=== PATIENT | female | born 1985 | race American Indian/Alaskan Native ===

== ENCOUNTER 2020-10-11 11:30 | Outpatient (CLI) | payer MEDICAID ==
[2020-10-11 13:07] LABS: Hematocrit 35.3 % (30.3-42.9); Hemoglobin 11.5 gm/dl (10.1-14.3); Mean Corpuscular HGB Conc 33 % (30-34); Mean Corpuscular Volume 81 fl (79-97); Platelet Count 415 K/mm3 (140-440); Red Blood Count 4.33 M/mm3 (3.65-5.03); Red Cell Distribution Width 17.4 % (13.2-15.2)
[2020-10-11 13:16] LABS: INR 0.94 (0.87-1.13); Partial Thromboplastin Time 27.2 Sec. (24.2-36.6)
--- NOTE | 2020-10-11 13:26 | XRay Report ---
CHEST 2 VIEWS INDICATION / CLINICAL INFORMATION: HYPERTENSION. COMPARISON: Chest 2 views from 02/10/2015 FINDINGS: SUPPORT DEVICES: None. HEART / MEDIASTINUM: Mildly enlarged cardiac silhouette without other significant abnormalities. LUNGS / PLEURA: Clear lungs. No significant pleural effusion. No pneumothorax. ADDITIONAL FINDINGS: No significant additional findings. IMPRESSION: Mild cardiomegaly without an additional acute abnormality. Signer Name: Parker Eason MD Signed: 10/11/2020 1:21 PM Workstation Name: [id number]
[2020-10-11 13:36] LABS: Alanine Aminotransferase 20 units/L (7-56); BUN/Creatinine Ratio 19; Blood Urea Nitrogen 17 mg/dL (7-17); Calcium 9.6 mg/dL (8.4-10.2); Chol/HDL Ratio 2.36 %; HDL Cholesterol 66 mg/dL (40-59); Hemolysis Index 6; LDL Cholesterol,Direct 89 mg/dL (50-130)
[2020-10-11 13:51] LABS: ABG HCO3 23.6 mmol/L (20.0-26.0); ABG Methemoglobin 0.5 % (0.0-1.5); ABG Oxygen Saturation 97.2 % (95.0-99.0); ABG PCO2 38.7 mm Hg; ABG PH 7.402 pH Units (7.350-7.450); ABG PO2 91.6 mm Hg (80.0-90.0)
== END 2020-10-11 11:31 | disposition home or self-care (01) ==
LOC: CARD 11:30
PROVIDERS: ATTEND Internal Medicine
DX: I51.7 Cardiomegaly (principal); I10 Essential (primary) hypertension; G47.9 Sleep disorder, unspecified; Z68.42 Body mass index [BMI] 45.0-49.9, adult
CPT/HCPCS: 36415; 36600; 71046; 80053; 80061; 82803; 84436; 84443; 85027; 85610; 85730; 93005

== ENCOUNTER 2021-07-19 09:52 | Inpatient (IN) | payer MEDICAID ==
--- NOTE | 2021-07-19 10:16 | History and Physical Report ---
History of Present Illness Date of examination: 07/19/21 Date of admission: 07/19/21 09:52 Chief complaint: her for c/s History of present illness: Pt here for delivery via repeat c/s due to CHTN(no meds) and GDM(on metformin) as recommended by [facility] for delivery between 38-39.6 wks. Past History Past Medical History: asthma (GDM on meds), hypertension, other Past Surgical History: section - Obstetrical History : 2 Para: 1 Number of Living Children: 1 Medications and Allergies Allergies Allergy/AdvReac Type Severity Reaction Status Date / Time No Known Allergies Allergy Verified 02/01/15 02:59 Home Medications Medication Instructions Recorded Confirmed Last Taken Type Albuterol 2 puff IH Q6HR PRN 02/01/15 02/09/15 02/01/15 History Zithromax Z-EMMY 250 mg PO DAILY 02/01/15 02/09/15 02/01/15 00:00 History 250 mg Ibuprofen [Motrin] 800 mg PO Q8H PRN #30 tablet 02/09/15 Unknown Rx Lidocaine/Prilocaine [Emla Cream] 5 gm TP ONCE #1 cream..g. 02/09/15 Unknown Rx oxyCODONE /ACETAMINOPHEN [Percocet 1 - 2 tab PO Q6HR PRN #30 tablet 02/09/15 Unknown Rx 5/325] Pantoprazole [Protonix] 40 mg PO QHS #30 1000units 02/11/15 Unknown Rx Albuterol Mdi (or & Nicu Only) 2 puff IH TID PRN #1 inhalation 02/12/15 Unknown Rx [ProAir HFA Inhaler] NIFEdipine XL [Procardia Xl] 30 mg PO Q12HR #60 tablet 02/12/15 Unknown Rx Results Result Diagrams: 07/19/21 10:30 All other labs normal. Assessment and Plan - Patient Problems (1) 38 weeks gestation of Current Visit: No Status: Acute Plan to address problem: -admit -prepare for c/s (2) Asthma Current Visit: No Status: Acute Qualifiers: Asthma severity: mild (3) Previous delivery, antepartum Current Visit: No Status: Acute Plan to address problem: -admit and prepare for c/s -consents signed and placed on the chart -all questions were addressed and answered.
--- NOTE | 2021-07-19 10:34 | Anesthesia Day of Surgery ---
Anesthesia Day of Surgery - Day of Surgery Patient Examined: Yes Patient H&P Reviewed: Yes Patient is NPO: Yes Beta Blockers: No Cardiac Clearance: No Pulmonary Clearance: No Bruno's Test: Negative
--- NOTE | 2021-07-19 10:36 | Anesthesia Consultation ---
Anesthesia Consult and Med Hx Date of service: 07/19/21 - Airway Anesthetic Teeth Evaluation: Poor ROM Head & Neck: Adequate Mental/Hyoid Distance: Adequate Mallampati Class: Class II Intubation Access Assessment: Probably Good - Pulmonary Exam CTA: No (wheezing) - Cardiac Exam Cardiac Exam: RRR - Pre-Operative Health Status ASA Pre-Surgery Classification: ASA3 Proposed Anesthetic Plan: Spinal - Pulmonary Hx Smoking: Yes (stop 7months ago) Hx Asthma: Yes (recent development) Hx Respiratory Symptoms: Yes SOB: No COPD: No Home Oxygen Therapy: No Hx Pneumonia: No Hx Sleep Apnea: No - Cardiovascular System Hx Hypertension: No Hx Coronary Artery Disease: No Hx Heart Attack/AMI: Yes Hx Angina: No Hx Percutaneous Transluminal Coronary Angioplasty (PTCA): No Hx Cardia Arrhythmia: No Hx Pacemaker: No Hx Internal Defibrillator: No Hx Valvular Heart Disease: No Hx Heart Murmur: No Hx Peripheral Vascular Disease: No - Central Nervous System Hx Neuromuscular Disorder: No Hx Seizures: No CVA: No Hx Back Pain: Yes Hx Psychiatric Problems: No - Gastrointestinal Hx Ulcer: No Hx Gastroesophageal Reflux Disease: No - Endocrine Hx Renal Disease: No Hx End Stage Renal Disease: No Hx Cirrhosis: No Hx Liver Disease: No Hx Insulin Dependent Diabetes: No Hx Non-Insulin Dependent Diabetes: Yes Hx Hypothyroidism: No Hx Hyperthyroidism: No - Hematic Hx Anemia: No Hx Sickle Cell Disease: No - Other Systems Hx Alcohol Use: No Hx Substance Use: No Hx Cancer: No Hx Obesity: Yes
[2021-07-19] MEDS: LACTATED RINGERS 1,000 ML IV SCH (10:45)
[2021-07-19 10:53] LABS: Basophils % (Auto) 0.4 % (0.0-1.8); Eosinophils # (Auto) 0.3 K/mm3 (0.0-0.4); Eosinophils % (Auto) 4.5 % (0.0-4.3); Hematocrit 35.7 % (30.3-42.9); Hemoglobin 11.4 gm/dl (10.1-14.3); Lymphocytes # (Auto) 1.5 K/mm3 (1.2-5.4); Lymphocytes % (Auto) 22.8 % (13.4-35.0); Mean Corpuscular HGB Conc 32 % (30-34); Mean Corpuscular Volume 83 fl (79-97); Monocytes # (Auto) 0.3 K/mm3 (0.0-0.8); Monocytes % (Auto) 4.1 % (0.0-7.3); Platelet Count 441 K/mm3 (140-440); Red Blood Count 4.33 M/mm3 (3.65-5.03)
[2021-07-19] MEDS ORDERED: HYDROmorphone 1 MG/1 ML INJ IV PRN ×2 (11:00)
[2021-07-19] MEDS ORDERED: ceFAZolin/Water 2 GM/20 ML 2 GM/20 ML SYRINGE IV NR (11:00)
[2021-07-19] MEDS ORDERED: ONDANSETRON 4 MG/2 ML INJ IV PRN (11:00)
[2021-07-19] MEDS ORDERED: BICITRA ORAL LIQD 30ML PO ONE (11:00)
[2021-07-19] MEDS ORDERED: ALBUTEROL 2.5 MG/3 ML NEBU IH NR (11:00)
[2021-07-19] MEDS ORDERED: METOCLOPRAMIDE 10 MG/2 ML INJ IV ONE (11:00)
[2021-07-19] MEDS ORDERED: NALOXONE 0.4 MG/1 ML INJ IV PRN ×2 (11:00→13:54)
[2021-07-19] MEDS ORDERED: FAMOTIDINE 20 MG/2 ML INJ IV ONE (11:00)
[2021-07-19] MEDS ORDERED: OXYTOCIN DRIP 30 UNITS/500 ML BAG IV SCH (11:00)
[2021-07-19] MEDS ORDERED: ONDANSETRON 4 MG/2 ML INJ ONE ×2 (11:55)
[2021-07-19] MEDS ORDERED: PHENYLEPHRINE/NS 1,000 MCG/10 ML SYRINGE (OR USE) IV ONE (12:11)
[2021-07-19] MEDS ORDERED: WATER FOR IRRIG STERILE 1,500 ML BOTTLE IR ONE (12:15)
[2021-07-19] MEDS ORDERED: ceFAZolin 1 GM VIAL ONE (12:15)
[2021-07-19] MEDS ORDERED: SODIUM CHLORIDE 0.9% IRR 1,500 ML BOTTLE IR ONE (12:15)
[2021-07-19] MEDS ORDERED: BUPIVACAINE/PF (0.25%) 2.5 MG/ML 30 ML VIAL INFILTRATI ONE ×2 (12:57)
[2021-07-19] MEDS ORDERED: dexAMETHasone 20 MG/5 ML VIAL ONE (12:57)
[2021-07-19] MEDS ORDERED: MAGNESIUM SULFATE 40GM/1000ML 40 GM/1,000 ML BAG IV ONE (13:42)
[2021-07-19] MEDS ORDERED: MAGNESIUM SULFATE 4 GM/100 ML BAG IV ONE ×3 (13:42→15:19)
--- NOTE | 2021-07-19 13:45 | Progress Note ---
Spinal Anesthesia Block - Spinal Anesthesia Block Start Time: 12:01 Stop Time: 12:07 Performed by:: HAMIDA VASQUEZ Procedure: Patient IDed, H&P reviewed, all questions and concerns were answered, and consent was signed. Timeout was performed at bedside. Patient in sitting position. Sterile prep and drape was performed. [3] ml of 1% lidocaine skin wheal at L[3]- L [4]. Needle introducer advanced. 25 gauge spinal needle advanced. Clear, free flowing CSF. negative blood, negative paresthesia. Spinal dose given. All needles removed. Patient tolerated procedure.
--- NOTE | 2021-07-19 13:49 | Progress Note ---
Regional Anesthesia Block - Regional Anesthesia Block Start Time: 13:24 Stop Time: : Performed By:: HAMIDA VASQUEZ Procedure: Patient consented for TAP block for post surgical pain management. Patient identified, monitors placed, and time out performed. TAP identified bilaterally via ultrasound. Skin prepped bilaterally with [chlorhexidine] and [22g stimuplex] needle advanced to the TAP. [Marcaine 0.25% 35ml] injected under ultrasound guidance on the [left] side. [Marcaine 0.25% 35ml] injected under ultrasound guidance on the [right] side. Negative aspiration every 5mL, No change in heart rate or rhythm. Patient tolerated the procedure well. No apparent complications seen.
[2021-07-19] MEDS ORDERED: KETOROLAC 30 MG/1 ML INJ IV PRN ×2 (13:54)
[2021-07-19] MEDS ORDERED: WITCH HAZEL/ GLYCERIN PAD TP PRN (13:54)
[2021-07-19] MEDS ORDERED: LANOLIN/ZINC/DIMETHICONE (LANSINOH) 7 GM TP PRN (13:54)
--- NOTE | 2021-07-19 13:54 | Operative Report ---
Operative Report Operative Report: Date of procedure: 07/19/2021 Pre-operative diagnosis: 38 weeks gestation Previous section x2 Advanced maternal age Gestational diabetes on oral meds Chronic hypertension on no medications Post-operative diagnosis: Same Procedure name(s): Repeat low transverse section via Pfannenstiel skin incision Vacuum assisted delivery Surgeon: Dr. Mendoza Wrapper Stemmer Hand: ANTONELLA Anesthesia: Certified surgical scrub esl instructional assistant EBL: QBL: 1868ml Urine output: 100 mL of clear urine out at end of procedure Fluids: 900 mL Findings: Liveborn male weight 7 pounds 1 ounce Apgars of 8 and 8 at 1 and 5 minutes Grossly normal fallopian tubes and ovaries bilaterally Mild pelvic adhesions of the uterus to the posterior abdominal wall. Indications: Patient presents for scheduled repeat section. All risk benefits and alternatives were discussed with the patient. Consents were signed and placed on the chart. Procedure: Patient was taking to the operating room. Patient was then prepped and draped in sterile fashion after anesthesia was found to be adequate. A low transverse skin incision was made with the scalpel through previous incisional scar and carried down to the underlying layer of fascia with the Bovie. The fascia was then incised in the midline and this incision was extended bilaterally with the Bovie. The superior aspect of the fascia was grasped with Damon clamps tented upward and dissected off of the anterior rectus muscles with the scalpel. In similar fashion the inferior aspect of the fascia was grasped with Damon clamps tented upward and dissected off of the anterior rectus muscles. The rectus muscles were then bluntly divided in the midline. The peritoneum was identified and entered into sharply. The Vinny retractor was placed the bladder blade was placed.A lower transverse uterine incision was made with the scalpel and extended bilaterally with the bandage scissors. Artificial rupture of membranes was performed yielding [clear amniotic fluid]. Kiwi vacuum was applied with care not to place over anterior fontanelle. Vacuum was applied a total of 4 times however it should be noted that with application #2 there was no immediate pop-off due to not having complete suction on the second time it was applied. There was a total of 3 pop offs. With each placement of the vacuum the infant's head was reevaluated to be sure that the position was noted to be unchanged and care was placed not to position over anterior fontanelle. The uterine incision was extended superiorly in order to facilitate delivery of the head. The 's head was then delivered atraumatically. The anterior shoulder and rest of infant delivered without difficulty. The umbilical cord was clamped x2. The cord was cut. The was then placed in sterile bassinet. [The cord blood was collected]. The placenta was manually extracted in its entirety. The uterus was exteriorized and cleared of all clots and debris. The uterine incisions were closed using 0 Vicryl in a running locking fashion. Several [id number] sutures were used along incision lines to secure excellent hemostasis. Surgicel was placed along the incision. With excellent hemostasis noted. The posterior cul-de-sac was copiously irrigated. The uterus was returned to the abdomen. The gutters were also irrigated. The anterior rectus muscles were reapproximated using 3-0 Vicryl. The anterior rectus fascia was reapproximated using 0 Vicryl in a running fashion. The subcuticular fat was reapproximated using 2-0 Vicryl in a running fashion. The skin was reapproximated with 4-0 Monocryl in a subcuticular stitch. The patient tolerated the procedure well. Sponge lap and needle counts were all correct x3. Patient was taken to the recovery room awake and in stable condition.
[2021-07-19] MEDS ORDERED: MAGNESIUM SULFATE 40GM/1000ML 40 GM/1,000 ML BAG IV SCH (14:00)
[2021-07-19] MEDS ORDERED: D5W/LACTATED RINGERS 1,000 ML IV SCH (15:00)
[2021-07-19] MEDS ORDERED: ALBUTEROL 2.5 MG/3 ML NEBU IH PRN (16:00)
[2021-07-19] MEDS ORDERED: hydrALAZINE 20 MG/1 ML INJ IV ONE (19:45)
[2021-07-19] MEDS: ceFAZolin/NS 1 GM/50 ML 1 GM/50 ML BAG IV SCH (19:51)
[2021-07-19] MEDS: HYDROcodone/ACETAMINOPHEN 5-325 MG TAB PO PRN (23:59)
[2021-07-20 01:03] LABS: Hematocrit 31.2 % (30.3-42.9); Hemoglobin 10.2 gm/dl (10.1-14.3)
[2021-07-20] MEDS ORDERED: hydrALAZINE 20 MG/1 ML INJ IV ONE (02:27)
[2021-07-20] MEDS ORDERED: SIMETHICONE 80 MG CHEW TAB PO ONE (02:35)
[2021-07-20] MEDS: ceFAZolin/NS 1 GM/50 ML 1 GM/50 ML BAG IV SCH (02:46)
[2021-07-20] MEDS: LACTATED RINGERS 1,000 ML IV SCH (03:02)
[2021-07-20] MEDS: HYDROcodone/ACETAMINOPHEN 5-325 MG TAB PO PRN ×2 (05:25→22:54)
[2021-07-20] MEDS: IBUPROFEN 800 MG TAB PO PRN ×2 (09:47→16:17)
--- NOTE | 2021-07-20 11:26 | Progress Note ---
Assessment and Plan - Patient Problems (1) delivery delivered Current Visit: No Status: Acute Plan to address problem: Continue routine postoperative care Incision C/D/I Wound care reviewed with patient (2) Chronic hypertension Current Visit: Yes Status: Chronic Plan to address problem: Labetalol 200 mg BID restarted Will continue to monitor blood pressures (3) Gestational diabetes mellitus Current Visit: Yes Status: Acute Plan to address problem: Metformin D/C'd following delivery Fasting glucose in the AM 2hr GTT in 6 weeks (4) Pre-eclampsia Current Visit: No Status: Acute Plan to address problem: Magnesium sulfate to end at 1400 Patient asymptomatic Will continue to monitor blood pressures Labetalol 200 mg BID Subjective - Subjective Date of service: 07/20/21 Principal diagnosis: s/p repeat section Interval history: Patient is with h/o GDM and cHTN POD #1 s/p RCS. Voices no complaints. Notes some incisional pain. Tolerating diet without nausea and vomiting. Has not yet been ambulating due to being on Magnesium. Denies CERVANTES, RUQ/epigastric pain, chest pain, and SOB. Baby at bedside doing well. Unsure of how much bleeding she is having as she has not been up to the restroom due to catheter being in place. Patient reports: appetite normal, flatus [place]: doing well Objective - Vital Signs Latest vital signs: Vital Signs Temp Pulse Resp BP BP Pulse Ox Pulse Ox 07/20/21 11:20 82 99 07/20/21 11:16 78 119/73 07/20/21 11:15 78 100 07/20/21 11:10 76 99 07/20/21 11:05 78 97 07/20/21 11:00 78 96 07/20/21 10:55 79 100 07/20/21 10:50 80 99 07/20/21 10:46 83 132/71 07/20/21 10:45 82 99 07/20/21 10:40 84 97 07/20/21 10:39 88 93 07/20/21 10:35 86 99 07/20/21 10:30 86 99 07/20/21 10:25 89 96 07/20/21 10:20 91 H 99 07/20/21 10:16 89 130/65 07/20/21 10:15 91 H 99 07/20/21 10:14 91 H 92 07/20/21 10:10 92 H 99 07/20/21 10:05 88 98 07/20/21 10:01 96 H 87 07/20/21 10:00 85 100 07/20/21 09:55 87 100 07/20/21 09:50 86 100 07/20/21 09:49 98.0 F 07/20/21 09:47 142/81 07/20/21 09:46 83 142/81 07/20/21 09:45 89 100 07/20/21 09:40 85 100 07/20/21 09:35 85 99 07/20/21 09:30 83 99 07/20/21 09:28 88 93 07/20/21 09:25 80 98 07/20/21 09:20 83 100 07/20/21 09:16 82 134/79 07/20/21 09:15 82 100 07/20/21 09:10 84 100 07/20/21 09:05 83 100 07/20/21 09:00 93 H 100 07/20/21 08:55 86 100 07/20/21 08:50 83 99 07/20/21 08:46 85 141/90 07/20/21 08:45 86 100 07/20/21 08:40 82 100 07/20/21 08:35 86 100 07/20/21 08:30 85 99 07/20/21 08:25 84 99 07/20/21 08:20 83 100 07/20/21 08:16 80 137/70 91 07/20/21 08:15 86 98 07/20/21 08:10 83 96 07/20/21 08:06 84 94 07/20/21 08:05 84 95 07/20/21 08:00 84 96 07/20/21 07:55 86 96 07/20/21 07:50 87 96 07/20/21 07:46 86 148/87 07/20/21 07:45 86 98 07/20/21 07:44 93 H 94 07/20/21 07:40 95 H 100 21 07:35 87 100 21 07:30 84 100 07/20/21 07:25 87 100 07/20/21 07:20 83 100 07/20/21 07:16 81 149/70 07/20/21 07:15 83 100 07/20/21 07:10 86 99 07/20/21 07:06 99 H 93 07/20/21 07:05 93 H 99 07/20/21 07:00 84 100 07/20/21 06:55 85 100 07/20/21 06:50 83 100 07/20/21 06:46 85 120/60 07/20/21 06:45 83 100 07/20/21 06:40 84 100 07/20/21 06:35 83 100 07/20/21 06:30 85 99 07/20/21 06:25 83 98 07/20/21 06:20 87 100 07/20/21 06:16 83 132/65 07/20/21 06:15 90 99 07/20/21 06:10 85 99 07/20/21 06:09 100 H 85 07/20/21 06:05 88 99 07/20/21 06:00 91 H 99 07/20/21 05:55 86 99 07/20/21 05:50 87 100 07/20/21 05:46 86 144/77 94 07/20/21 05:45 88 98 07/20/21 05:40 86 100 07/20/21 05:35 88 100 100 07/20/21 05:33 96 H 92 07/20/21 05:30 85 98 07/20/21 05:25 86 100 100 07/20/21 05:20 83 100 07/20/21 05:16 84 157/83 93 07/20/21 05:15 85 100 07/20/21 05:10 83 98 07/20/21 05:05 93 H 99 07/20/21 05:00 88 100 07/20/21 04:55 87 100 07/20/21 04:50 84 100 07/20/21 04:46 82 157/83 88 07/20/21 04:45 83 100 07/20/21 04:40 85 100 07/20/21 04:35 86 100 07/20/21 04:30 89 99 07/20/21 04:25 83 98 07/20/21 04:20 87 98 07/20/21 04:16 85 139/76 90 07/20/21 04:15 87 97 07/20/21 04:10 85 98 07/20/21 04:05 85 98 10/23/21 04:00 85 100 07/20/21 03:55 86 100 07/20/21 03:50 86 99 07/20/21 03:46 85 154/80 94 07/20/21 03:45 89 95 07/20/21 03:40 83 98 07/20/21 03:35 87 97 07/20/21 03:30 85 99 07/20/21 03:25 84 99 07/20/21 03:20 84 100 99 07/20/21 03:16 87 133/77 89 07/20/21 03:15 84 100 07/20/21 03:10 86 100 07/20/21 03:05 91 H 98 07/20/21 03:00 89 98 07/20/21 02:55 86 98 07/20/21 02:50 86 98 07/20/21 02:49 98.5 F 83 20 146/84 99 07/20/21 02:46 82 174/99 94 07/20/21 02:45 86 98 07/20/21 02:40 82 100 07/20/21 02:35 81 99 07/20/21 02:30 76 100 07/20/21 02:25 89 99 07/20/21 02:20 82 98 07/20/21 02:16 85 132/76 07/20/21 02:15 84 100 07/20/21 02:10 82 99 07/20/21 02:05 79 99 07/20/21 02:00 83 100 07/20/21 01:55 78 98 07/20/21 01:50 83 98 07/20/21 01:46 80 174/99 94 07/20/21 01:45 80 98 07/20/21 01:40 80 100 07/20/21 01:35 86 100 98 07/20/21 01:30 84 99 07/20/21 01:25 84 100 07/20/21 01:20 120 H 97 07/20/21 01:17 85 94 07/20/21 01:16 80 153/86 07/20/21 01:15 84 100 07/20/21 01:10 82 100 07/20/21 01:09 70 93 07/20/21 01:05 83 99 07/20/21 01:00 83 99 07/20/21 00:55 81 100 07/20/21 00:50 80 100 10/23/21 00:49 83 91 23/21 00:46 78 146/89 23/21 00:45 82 100 23/21 00:40 82 100 23/21 00:35 81 99 23/21 00:30 84 98 23/21 00:25 84 99 23/21 00:20 85 99 23/21 00:15 91 H 97 23/21 00:10 85 99 23/21 00:05 89 100 23/21 00:00 86 99 22/21 23:55 85 98 22/21 23:54 89 94 22/21 23:50 98.0 F 87 98 22/21 23:46 86 146/86 86 22/21 23:45 86 97 22/21 23:40 87 96 22/21 23:35 88 97 22/21 23:30 89 99 22/21 23:25 89 98 22/21 23:20 88 99 22/21 23:16 89 139/81 93 22/21 23:15 90 97 22/21 23:10 90 98 22/21 23:05 90 99 22/21 23:00 91 H 99 22/21 22:55 94 H 94 22/21 22:50 94 H 100 22/21 22:46 93 H 149/82 91 22/21 22:45 94 H 97 22/21 22:42 98.5 F 92 H 20 98 22/21 22:40 92 H 98 22/21 22:35 91 H 99 22/21 22:30 95 H 18 97 22/21 22:25 93 H 100 22/21 22:20 92 H 98 22/21 22:16 96 H 159/85 87 22/21 22:15 100 H 99 22/21 22:10 92 H 99 22/21 22:05 91 H 99 22/21 22:00 95 H 100 22/21 21:55 94 H 100 22/21 21:50 104 H 100 22/21 21:46 96 H 138/83 10/22/21 21:45 95 H 100 07/19/21 21:40 97 H 100 07/19/21 21:35 100 H 100 07/19/21 21:31 98 H 91 07/19/21 21:30 98 H 100 07/19/21 21:27 98 07/19/21 21:25 94 H 99 07/19/21 21:20 88 99 07/19/21 21:16 89 151/88 07/19/21 21:15 88 100 07/19/21 21:10 88 100 07/19/21 21:05 99 H 100 07/19/21 21:04 91 H 168/90 07/19/21 21:00 94 H 168/80 100 07/19/21 20:55 96 H 100 07/19/21 20:50 98 H 100 07/19/21 20:46 83 175/100 07/19/21 20:45 86 100 07/19/21 20:40 89 100 07/19/21 20:35 91 H 100 07/19/21 20:30 87 100 07/19/21 20:25 95 H 100 07/19/21 20:20 88 97 07/19/21 20:16 92 H 174/99 07/19/21 20:15 92 H 100 07/19/21 20:10 90 100 07/19/21 20:05 93 H 100 07/19/21 20:00 92 H 100 07/19/21 19:55 88 100 07/19/21 19:50 90 99 07/19/21 19:46 89 164/94 07/19/21 19:45 91 H 99 07/19/21 19:40 86 100 07/19/21 19:35 86 100 21 19:30 87 100 22 19:25 84 100 07/19/21 19:20 85 100 21 19:16 86 167/96 07/19/21 19:15 85 100 07/19/21 19:10 93 H 99 07/19/21 19:08 83 89 07/19/21 19:05 88 100 07/19/21 19:00 98.7 F 90 100 2221 18:55 83 100 2221 18:50 83 100 2221 18:49 90 85 22/21 18:46 82 168/96 10/22/21 18:45 86 100 07/19/21 18:40 81 100 07/19/21 18:35 83 100 07/19/21 18:30 80 100 07/19/21 18:25 86 100 07/19/21 18:20 79 100 07/19/21 18:16 78 163/98 07/19/21 18:15 79 100 07/19/21 18:10 83 100 07/19/21 18:05 93 H 95 07/19/21 18:01 93 H 90 07/19/21 18:00 85 100 07/19/21 17:55 85 100 07/19/21 17:50 89 100 07/19/21 17:46 85 166/90 07/19/21 17:45 84 100 07/19/21 17:40 82 100 07/19/21 17:35 83 100 07/19/21 17:30 87 100 07/19/21 17:25 87 100 07/19/21 17:20 82 100 07/19/21 17:16 81 152/86 07/19/21 17:15 85 100 07/19/21 17:10 77 100 07/19/21 17:07 78 166/90 07/19/21 17:05 84 100 07/19/21 17:00 79 100 07/19/21 16:55 84 100 07/19/21 16:51 61 83 L 07/19/21 16:50 69 96 07/19/21 16:46 77 174/91 07/19/21 16:45 79 100 07/19/21 16:40 80 100 07/19/21 16:35 79 100 07/19/21 16:30 84 100 07/19/21 16:25 80 100 07/19/21 16:20 72 100 07/19/21 16:16 78 143/78 07/19/21 16:15 79 100 07/19/21 16:14 104 H 57 L 07/19/21 16:10 77 100 07/19/21 16:05 82 100 07/19/21 16:01 80 86 07/19/21 16:00 72 100 07/19/21 15:55 72 100 07/19/21 15:50 75 100 07/19/21 15:46 72 140/93 07/19/21 15:45 74 100 07/19/21 15:40 71 100 07/19/21 15:35 73 100 07/19/21 15:31 73 88 07/19/21 15:30 73 97 07/19/21 15:25 73 100 07/19/21 15:20 71 100 07/19/21 15:15 73 133/84 100 07/19/21 15:10 73 100 07/19/21 14:40 97.7 F 73 20 133/62 100 07/19/21 14:30 73 18 135/73 100 07/19/21 14:15 75 17 155/75 100 07/19/21 14:00 76 17 143/75 100 07/19/21 13:50 74 17 133/70 100 07/19/21 13:45 76 17 134/72 100 07/19/21 13:40 78 18 98/50 100 07/19/21 13:39 97.4 F L 78 18 162/106 100 07/19/21 11:37 95 H 100 07/19/21 11:32 99 H 100 07/19/21 11:27 92 H 100 Intake and Output 07/19/21 07/20/21 07/20/21 23:59 07:59 15:59 Intake Total 50 480 Output Total 3080 950 600 Balance -3030 -470 -600 Intake: IV 50 ANCEF/NS 1 GM/50 ML 1 gm 50 In 50 ml @ 100 mls/hr IV Q8H PENDING SALE TO [facility] Rx#:[id number] Oral 480 Output: Urine 3080 950 600 Indwelling Catheter 3080 950 600 Other: Total, Intake Amount 120 Total, Output Amount 400 300 600 - Exam Cardiovascular: Present: Regular rate Lungs: Present: Normal air movement Abdomen: Present: normal appearance, soft Uterus: Present: firm, fundal height below umbilicus Extremities: Present: normal Incision: Present: dry, intact - Labs Labs: Abnormal lab results 07/19/21 07/20/21 07/20/21 Range/Units 17:42 00:14 06:01 Magnesium 3.70 H 3.80 H 4.40 H (1.7-2.3) mg/dL
[2021-07-20] MEDS ORDERED: TETANUS,DIPH,PERTUSS(ACELL) VACCINE 0.5 ML SYRINGE IM ONE (14:55)
--- NOTE | 2021-07-20 16:04 | Post Anesthesia Evaluation ---
- Post Anesthesia Evaluation Patient Participated: Yes Airway Patent: Yes Stable Respiratory Function: Yes Nausea/Vomiting: No Temp > 96.8F: Yes Pain Manageable: Yes Adequeate Hydration: Yes Anesthesia Complications: No Block Receding Appropriately: Yes Patient on Ventilator: No
[2021-07-21] MEDS: IBUPROFEN 800 MG TAB PO PRN (04:08)
[2021-07-21] MEDS ORDERED: SIMETHICONE 80 MG CHEW TAB PO PRN (09:28)
--- NOTE | 2021-07-21 09:33 | Progress Note ---
Assessment and Plan - Patient Problems (1) delivery delivered Current Visit: No Status: Acute Plan to address problem: Continue routine postoperative care Incision C/D/I Wound care reviewed with patient (2) Chronic hypertension Current Visit: Yes Status: Chronic Plan to address problem: Labetalol 200 mg BID Will continue to monitor blood pressures (3) Gestational diabetes mellitus Current Visit: Yes Status: Acute Plan to address problem: Metformin D/C'd following delivery 2hr GTT in 6 weeks (4) Pre-eclampsia Current Visit: No Status: Acute Plan to address problem: s/p magnesium sulfate Subjective - Subjective Principal diagnosis: s/p repeat section Interval history: Patient is with h/o GDM and cHTN POD #2 s/p RCS. Voices no complaints. Notes some gas pain. Tolerating diet, ambulating, and voiding. Denies CERVANTES, RUQ/epigastric pain, chest pain, and SOB. Baby at bedside doing well. POC discussed with patient. Will continue to monitor with possible discharge this evening. Patient reports: appetite normal, voiding normally, pain well controlled, ambulating normally : doing well Objective - Vital Signs Latest vital signs: Vital Signs Temp Pulse Resp BP BP Pulse Ox Pulse Ox 07/21/21 05:58 98.4 F 86 18 126/60 100 07/21/21 05:08 18 07/21/21 04:08 20 07/21/21 01:31 98.1 F 89 18 123/62 100 07/20/21 23:54 18 07/20/21 22:54 18 07/20/21 22:53 88 135/75 07/20/21 21:18 97.3 F L 82 18 137/83 100 07/20/21 16:27 98.2 F 83 18 140/78 99 07/20/21 14:40 98.0 F 80 19 145/85 98 98 07/20/21 14:19 80 145/78 07/20/21 14:16 81 188/97 07/20/21 14:15 79 100 07/20/21 14:10 81 98 07/20/21 14:05 81 100 07/20/21 14:00 83 100 07/20/21 13:55 81 100 07/20/21 13:50 83 100 07/20/21 13:46 80 159/81 93 07/20/21 13:45 83 100 07/20/21 13:40 86 100 07/20/21 13:35 81 100 07/20/21 13:30 84 98 07/20/21 13:27 97.8 F 07/20/21 13:25 84 99 07/20/21 13:20 81 99 07/20/21 13:16 80 138/85 07/20/21 13:15 88 99 07/20/21 13:10 83 99 07/20/21 13:05 80 100 07/20/21 13:00 84 99 07/20/21 12:55 80 100 07/20/21 12:50 83 99 07/20/21 12:46 77 133/74 91 07/20/21 12:45 80 98 07/20/21 12:40 78 99 07/20/21 12:35 79 99 07/20/21 12:30 80 99 07/20/21 12:25 82 99 07/20/21 12:20 85 100 07/20/21 12:16 81 101/62 07/20/21 12:15 84 99 07/20/21 12:10 80 99 07/20/21 12:05 78 98 07/20/21 12:00 82 100 07/20/21 11:55 78 100 07/20/21 11:50 85 98 07/20/21 11:46 85 121/62 89 07/20/21 11:45 86 100 07/20/21 11:40 83 98 07/20/21 11:35 76 99 07/20/21 11:30 78 100 07/20/21 11:25 79 99 07/20/21 11:20 82 99 07/20/21 11:16 78 119/73 07/20/21 11:15 78 100 07/20/21 11:10 76 99 07/20/21 11:05 78 97 07/20/21 11:00 78 96 07/20/21 10:55 79 100 07/20/21 10:50 80 99 07/20/21 10:46 83 132/71 07/20/21 10:45 82 99 07/20/21 10:40 84 97 07/20/21 10:39 88 93 07/20/21 10:35 86 99 07/20/21 10:30 86 99 07/20/21 10:25 89 96 07/20/21 10:20 91 H 99 10/23/21 10:16 89 130/65 07/20/21 10:15 91 H 99 07/20/21 10:14 91 H 92 07/20/21 10:10 92 H 99 07/20/21 10:05 88 98 07/20/21 10:01 96 H 87 07/20/21 10:00 85 100 07/20/21 09:55 87 100 07/20/21 09:50 86 100 07/20/21 09:49 98.0 F 07/20/21 09:47 142/81 07/20/21 09:46 83 142/81 07/20/21 09:45 89 100 07/20/21 09:40 85 100 07/20/21 09:35 85 99 07/20/21 09:30 83 99 Intake and Output 07/20/21 07/21/21 07/21/21 23:59 07:59 15:59 Intake Total 240 480 Output Total 500 600 Balance -260 -120 Intake: Oral 240 Intake, Free Water 240 240 Output: Urine 500 600 Void 500 600 Other: Total, Intake Amount 240 Total, Output Amount 500 600 # Voids Void 1 1 - Exam Cardiovascular: Present: Regular rate, Normal S1, Normal S2 Lungs: Present: Clear to auscultation Abdomen: Present: soft Vulva: both: normal Uterus: Present: firm, fundal height above umbilicus Extremities: Present: normal Incision: Present: normal, dry, intact - Labs Labs: Abnormal lab results 07/20/21 Range/Units 12:18 Magnesium 4.60 H (1.7-2.3) mg/dL
[2021-07-21] MEDS: HYDROcodone/ACETAMINOPHEN 5-325 MG TAB PO PRN (14:40)
--- NOTE | 2021-07-21 16:13 | Discharge Summary ---
Providers - Providers Date of Admission: 07/19/21 09:52 Date of discharge: 07/21/21 Attending physician: SHAINA TORRES Primary care physician: SHAINA TORRES Hospitalization Reason for admission: Repeat section Condition: Stable Procedures: Repeat section Hospital course: Patient admitted for RCS at 38 weeks secondary to GDM and cHTN. S/p RCS delivery of a male . See operative note for additional details. Patient noted to have elevated blood pressures on POD #0 and started on magnesium s ulfate for 24 hours and Labetalol 200 mg BID. Tolerated well. All postoperative goals met. Blood pressure well controlled. Discharged home in stable condition on POD #2. Disposition: 01 HOME / SELF CARE / HOMELESS Final Discharge Diagnosis (Prints w/discharge instructions): S/P Repeat Section - Discharge Diagnoses (1) delivery delivered Status: Acute (2) Chronic hypertension Status: Chronic (3) Gestational diabetes mellitus Status: Acute Qualifiers: Gestational diabetes mellitus control: oral hypoglycemic-controlled (4) Pre-eclampsia Status: Acute Qualifiers: Trimester: third trimester Qualified Code(s): O14.93 - Unspecified pre- eclampsia, third trimester Core Measure Documentation - Palliative Care Palliative Care/ Comfort Measures: Not Applicable - Core Measures Any of the following diagnoses?: none Exam - Constitutional Vitals: Temp Pulse Resp BP Pulse Ox 98.6 F 81 18 120/72 100 07/21/21 11:52 07/21/21 11:52 07/21/21 14:40 07/21/21 11:52 07/21/21 11:52 General appearance: Present: no acute distress - Respiratory Respiratory: bilateral: CTA - Cardiovascular Rhythm: regular Heart Sounds: Present: S1 & S2 - Extremities Extremities: no ischemia, No edema - Abdominal General gastrointestinal: Present: soft, non-tender, other (incision clean dry and intact) Female genitourinary: Present: other (perineum dry) Plan Activity: advance as tolerated, other (Nothing in the vagina, including sex, for 6 weeks) Weight Bearing Status: Full Weight Bearing Diet: diabetic Wound: open to air, keep clean and dry Care Plan Goals: [] Smoking cessation referral if applicable(refer to patient education folder for contact #) [] Refer to [facility] Booklet Call your doctor immediately for: * Fever > 100.5 * Heavy vaginal bleeding ( >1 pad per hour) * Severe persistent headache * Shortness of breath * Reddened, hot, painful area to leg or breast * Drainage or odor from incision. * Keep incision clean and dry at all times and follow doctor's instructions regarding bathing/showering Plan of Treatment: Call your doctor immediately for: * Fever > 100.5 * Heavy vaginal bleeding ( >1 pad per hour) * Severe persistent headache * Shortness of breath * Reddened, hot, painful area to leg or breast * Drainage or odor from incision. * Keep incision clean and dry at all times and follow doctor's instructions regarding bathing/showering * Nothing in the vagina, including sex, for 6 weeks Please contact office to schedule 1 week incision check and circumcision. Follow up with: SHAINA TORRES MD [Primary Care Provider] - 7 Days Forms: [facility] Discharge Summary Prescriptions: Docusate Sodium [Colace] 100 mg PO BID PRN #60 capsule PRN Reason: Constipation Lidocain2.5%/Prilocai2.5% [Emla] 2 gm TP ONCE #1 tube Ferrous Sulfate [Feosol 325 MG tab] 325 mg PO QDAY #60 tablet labetaloL [Labetalol 200mg TAB] 200 mg PO BID #60 tablet Ibuprofen [Motrin 800 MG tab] 800 mg PO Q8HR PRN #30 tablet PRN Reason: Pain, Moderate (4-6) oxyCODONE /ACETAMINOPHEN [Percocet 5/325] 1 tab PO Q4HR #30 tab
[2021-07-21 17:26] VITALS: BP 124/78
== END 2021-07-21 18:35 | disposition home or self-care (01) | DRG 765 ==
LOC: APU 09:52 → LD 17:07 → OB 07-20 15:53
PROVIDERS: ADMIT Obstetrics & Gynecology; ATTEND Obstetrics & Gynecology
PROC: 10D00Z1 Extraction of Products of Conception, Low, Open Approach (ICD-10-PCS; principal; 2021-07-19)
PROC: 3E0234Z Introduction of Serum, Toxoid and Vaccine into Muscle, Percutaneous Approach (ICD-10-PCS; 2021-07-20)
DX: O24.429 Gestational diabetes mellitus in childbirth, unspecified control (principal); O10.92 Unspecified pre-existing hypertension complicating childbirth; Z37.0 Single live birth; Z3A.38 38 weeks gestation of pregnancy; O14.94 Unspecified pre-eclampsia, complicating childbirth; Z20.822 Contact with and (suspected) exposure to COVID-19; O34.211 Maternal care for low transverse scar from previous cesarean delivery; O99.52 Diseases of the respiratory system complicating childbirth; J45.909 Unspecified asthma, uncomplicated; Z23 Encounter for immunization
CPT/HCPCS: 36415; 83735; 85014; 85018; 85025; 86850; 86900; 86901; 88307; 94640; G0378; J0360; J0690; J1100; J1170; J2370; J2405; J2765; J3475; J3490; J7120; U0003